=== PATIENT | female | born 1980 | race Caucasian/White ===

== ENCOUNTER 2020-05-17 12:29 | Day surgery (SDC) | payer OTHER ==
[~2020-05-17] VITALS: Ht 170.2 cm; Wt 61.7 kg
[~2020-05-17 12:29] MED LIST: MULVITA PO
--- NOTE | 2020-05-17 13:06 | NUR ---
Ambulatory in Day Surgery History, Chart, Medications and Allergies reviewed before start of procedure. Lungs clear T/O to Auscultation. Pre-Op teaching done. Pt verbalizes understanding.
--- NOTE | 2020-05-17 14:55 | NUR ---
05/17/20 1455 Tessy Ball NO PREOP ANTIBIOTICS ORDERED
--- NOTE | 2020-05-17 16:36 | NUR ---
RECIEVED PATIENT AND REPORT VSS GIVEN APPLE JUICE AND CRACKERS.
--- NOTE | 2020-05-17 17:31 | NUR ---
Discharge instructions reviewed with patient. Patient verbalizes understanding. Copy given to patient to take home. Patient States Post-Procedure ride home has been arranged. Discharged via wheelchair to private car for ride home.
== END 2020-05-17 23:31 | disposition home or self-care (01) ==
LOC: ORSCMMR 12:29 → ORD 12:30 → ORSCMMR 12:30
DX: N92.0 Excessive and frequent menstruation with regular cycle (principal); N97.9 Female infertility, unspecified; Z87.891 Personal history of nicotine dependence; Z79.899 Other long term (current) drug therapy
CPT/HCPCS: 88305; A9270; J1100; J2250; J2405; J2704; J2765; J3010; J7120